=== PATIENT | female | born 1945 | race Caucasian/White ===

== ENCOUNTER 2018-01-05 14:54 | Emergency (ER) | payer MEDICARE, OTHER ==
[2018-01-05 15:08] VITALS: BP 122/71
--- NOTE | 2018-01-05 15:20 | EDM.PDOC ---
ED HPI GENERAL MEDICAL PROBLEM - General Chief Complaint: Upper Extremity Injury/Pain Stated Complaint: LEFT INDEX FINGER INJURY Time Seen by Provider: 01/05/18 15:13 Source of Information: Reports: Patient, Family, RN Notes Reviewed History Limitations: Reports: No Limitations - History of Present Illness INITIAL COMMENTS - FREE TEXT/NARRATIVE: 72-year-old female presents emergency department today following trauma she accidentally caught her left digit #2 in the car door had a small laceration which was bleeding is now controlled she has full range of motion of the digit Left Hand Pain Score (Numeric/FACES): 4 - Related Data Allergies Allergy/AdvReac Type Severity Reaction Status Date / Time codeine Allergy Swelling Verified 12/02/15 06:59 Home Meds: Home Meds Aspirin [Low Dose Aspirin EC] 81 mg PO DAILY 01/06/14 [History] Ca Cmb No.1/Vit D3/B-6/FA/B12 [Vitamin D3 1,000 Unit] 1 tab PO DAILY 01/06/14 [ History] HCTZ/Triamterene [Maxzide 25-37.5 MG] 1 tab PO DAILY 01/06/14 [History] Lutein/Minerals/Vit A,C & E [Ocuvite] 1 tab PO DAILY 01/06/14 [History] Metoprolol Succinate 1 tab PO DAILY 01/06/14 [History] Multivit-Min/FA/Lycopene/Lut [Centrum Silver] 1 tab PO DAILY 01/06/14 [History] Omeprazole [Prilosec] 1 tab PO DAILY 01/06/14 [History] Simvastatin 1 tab PO BEDTIME 01/06/14 [History] buPROPion HCl [Wellbutrin SR] 1 tab PO DAILY 01/06/14 [History] Albuterol [Ventolin HFA] 2 puff IH Q4H PRN 01/10/15 [History] Fluticasone/Salmeterol [Advair 100-50 Diskus] 1 puff IH BID 01/10/15 [History] Allopurinol 300 mg PO DAILY 10/26/15 [History] Gabapentin 300 mg PO TID 10/26/15 [History] Ibuprofen 600 mg PO TID PRN 10/26/15 [History] Psyllium Husk 1 tbs PO DAILY 10/26/15 [History] Past Medical History HEENT History: Reports: Impaired Vision Cardiovascular History: Reports: High Cholesterol, Hypertension Respiratory History: Reports: Asthma Gastrointestinal History: Reports: GERD Musculoskeletal History: Reports: Back Pain, Chronic, Gout, Osteoarthritis Other Musculoskeletal History: seeing ortho next week for a bad knee Psychiatric History: Reports: Addiction, Anxiety, Depression Endocrine/Metabolic History: Reports: Obesity/BMI 30+ Hematologic History: Reports: Anemia Oncologic (Cancer) History: Reports: Basal Cell Carcinoma - Infectious Disease History Infectious Disease History: Reports: Chicken Pox, Measles - Past Surgical History HEENT Surgical History: Reports: LASIK, Oral Surgery, Tonsillectomy Respiratory Surgical History: Reports: None GI Surgical History: Reports: Colonoscopy Female Surgical History: Reports: D&C Endocrine Surgical History: Reports: None Neurological Surgical History: Reports: C-Spine Musculoskeletal Surgical History: Reports: Carpal Tunnel, Other (See Below) Dermatological Surgical History: Reports: None Social & Family History - Tobacco Use Smoking Status *Q: Never Smoker - Caffeine Use Caffeine Use: Reports: Coffee - Recreational Drug Use Recreational Drug Use: No - Living Situation & Occupation Living situation: Reports: Single Occupation: Retired Review of Systems - Review of Systems Review Of Systems: See Below Musculoskeletal: Reports: Joint Swelling (finger) ED EXAM, GENERAL - Physical Exam Exam: See Below Free Text/Narrative:: Examination of left hand I do appreciate some edema around digit #2 at the proximal and middle phalanges she has full range of motion of this digit is swollen so difficult to fully close but I don't appreciate any deviation she has a pedal pulse is +2 Course - Vital Signs Last Recorded V/S: Last Vital Signs Temp 97.8 F 01/05/18 15:04 Pulse 60 01/05/18 15:04 Resp 16 01/05/18 15:04 BP 122/71 01/05/18 15:04 Pulse Ox 95 01/05/18 15:04 - Orders/Labs/Meds Orders: Active Orders 24 hr Category Date Time Status Fingers Second Digit Lt F1 [CR] Stat Exams 01/05/18 15:16 Taken Departure - Departure Time of Disposition: 16:01 Disposition: Home, Self-Care 01 Condition: Good Clinical Impression: Crushing injury of left index finger Qualifiers: Encounter type: initial encounter Qualified Code(s): S67.191A - Crushing injury of left index finger, initial encounter - Discharge Information Referrals: Lon Devlin MD [Primary Care Provider] - Forms: ED Department Discharge Additional Instructions: Use Tylenol or Motrin as needed for pain control, Please followup with your primary care provider in 3-5 days if not better, please call return to the emergency department with worsening of symptoms. - My Orders Last 24 Hours: My Active Orders 01/05/18 15:16 Fingers Second Digit Lt F1 [CR] Stat - Assessment/Plan Last 24 Hours: My Active Orders 01/05/18 15:16 Fingers Second Digit Lt F1 [CR] Stat Plan: Assessment Acuity = acute Site and laterality = crush injury digit #2 left hand Etiology = secondary to car door Manifestations = none Location of injury = Home Lab values = x-ray shows I did review films myself I cannot appreciate any acute process, the official read from radiology is pending Plan Discharge to home Tylenol or Motrin as needed for pain control follow up with primary care 3-5 days if not better This note was dictated using [employer] voice recognition software please call with any questions on syntax or grammar.
--- NOTE | 2018-01-07 08:52 | CR ---
Fingers Second Digit Lt F1 CLINICAL HISTORY: Question injury FINDINGS: There is some soft tissue swelling of the index finger. There is interphalangeal and MCP. J oint space narrowing IMPRESSION: Soft tissue swelling No fracture Mild degenerative changes
== END 2018-01-05 16:17 | disposition home or self-care (01) ==
LOC: JP.ED 14:54
DX: S67.191A Crushing injury of left index finger, initial encounter (principal); I10 Essential (primary) hypertension; E66.9 Obesity, unspecified; W23.0XXA Caught, crushed, jammed, or pinched between moving objects, initial encounter; Z88.5 Allergy status to narcotic agent; Z79.899 Other long term (current) drug therapy; Z79.82 Long term (current) use of aspirin
CPT/HCPCS: 73140-26-F1; 73140-F1; 99284

== ENCOUNTER 2018-11-01 16:25 | Emergency (ER) | payer MEDICARE, OTHER ==
[2018-11-01 16:30] VITALS: BP 163/71; PULSE 66
[2018-11-01] MEDS ORDERED: Lidocaine 1% with EPINEPHrine 1:100,000 50 ML MDV SUBCUT ONE (16:33)
[2018-11-01] MEDS ORDERED: Bacitracin Oint 1 GM U/D Packet TOP ONE (16:33)
--- NOTE | 2018-11-01 16:39 | EDM.PDOC ---
ED HPI GENERAL MEDICAL PROBLEM - General Chief Complaint: Head Injury Stated Complaint: FALL VIA NORTH Time Seen by Provider: 11/01/18 16:26 Source of Information: Reports: Patient, EMS History Limitations: Reports: No Limitations - History of Present Illness INITIAL COMMENTS - FREE TEXT/NARRATIVE: Patient was walking down the road and she tripped over the road bump, falling and hitting her head; she did not lose consciousness; she is on a blood thinner. She has 3 separate laceration on her face. She states she is able to move all extremities. Does have some discomfort to her right wrist but is able to fully move. Onset: Today Location: Reports: Face, Upper Extremity, Right (right wrist) Severity: Moderate Improves with: Reports: None Worsens with: Reports: None - Related Data Allergies Allergy/AdvReac Type Severity Reaction Status Date / Time codeine Allergy Swelling Verified 11/01/18 16:42 Home Meds: Home Meds Aspirin [Low Dose Aspirin EC] 81 mg PO DAILY 01/06/14 [History] Ca Cmb No.1/Vit D3/B-6/FA/B12 [Vitamin D3 1,000 Unit] 1 tab PO DAILY 01/06/14 [ History] HCTZ/Triamterene [Maxzide 25-37.5 MG] 1 tab PO DAILY 01/06/14 [History] Lutein/Minerals/Vit A,C & E [Ocuvite] 1 tab PO DAILY 01/06/14 [History] Metoprolol Succinate 1 tab PO DAILY 01/06/14 [History] Multivit-Min/FA/Lycopene/Lut [Centrum Silver] 1 tab PO DAILY 01/06/14 [History] Omeprazole [Prilosec] 1 tab PO DAILY 01/06/14 [History] Simvastatin 1 tab PO BEDTIME 01/06/14 [History] buPROPion HCl [Wellbutrin SR] 1 tab PO DAILY 01/06/14 [History] Albuterol [Ventolin HFA] 2 puff IH Q4H PRN 01/10/15 [History] Fluticasone/Salmeterol [Advair 100-50 Diskus] 1 puff IH BID 01/10/15 [History] Allopurinol 300 mg PO DAILY 10/26/15 [History] Gabapentin 300 mg PO TID 10/26/15 [History] Ibuprofen 600 mg PO TID PRN 10/26/15 [History] Psyllium Husk 1 tbs PO DAILY 10/26/15 [History] Past Medical History HEENT History: Reports: Impaired Vision Cardiovascular History: Reports: High Cholesterol, Hypertension Respiratory History: Reports: Asthma Gastrointestinal History: Reports: GERD Genitourinary History: Reports: None Musculoskeletal History: Reports: Back Pain, Chronic, Fracture, Gout, Osteoarthritis Other Musculoskeletal History: seeing ortho next week for a bad knee Neurological History: Reports: None Psychiatric History: Reports: Addiction, Anxiety, Depression Endocrine/Metabolic History: Reports: Obesity/BMI 30+ Hematologic History: Reports: Anemia Oncologic (Cancer) History: Reports: Basal Cell Carcinoma Dermatologic History: Reports: None - Infectious Disease History Infectious Disease History: Reports: Chicken Pox, Measles - Past Surgical History HEENT Surgical History: Reports: LASIK, Oral Surgery, Tonsillectomy Respiratory Surgical History: Reports: None GI Surgical History: Reports: Colonoscopy Female Surgical History: Reports: D&C Endocrine Surgical History: Reports: None Neurological Surgical History: Reports: C-Spine Other Musculoskeletal Surgeries/Procedures:: current right wrist and humoral fx Dermatological Surgical History: Reports: None Social & Family History - Caffeine Use Caffeine Use: Reports: Coffee - Living Situation & Occupation Living situation: Reports: Single Occupation: Retired ED ROS GENERAL - Review of Systems Review Of Systems: See Below Constitutional: Reports: No Symptoms HEENT: Reports: No Symptoms Respiratory: Reports: No Symptoms Cardiovascular: Reports: No Symptoms GI/Abdominal: Reports: No Symptoms Musculoskeletal: Reports: Other (right wrist pain) Skin: Reports: Wound (3 seperate lacerations on her face) ED EXAM, GENERAL - Physical Exam Exam: See Below Exam Limited By: No Limitations General Appearance: Alert, WD/WN, No Apparent Distress Eye Exam: Bilateral Eye: EOMI, PERRL Ears: Normal External Exam, Normal Canal, Hearing Grossly Normal Nose: Normal Inspection, Normal Mucosa, No Blood Throat/Mouth: Normal Inspection, Normal Lips, Normal Teeth, Normal Gums Head: Other (laceration to her chin, 0.5 cm, laceration to her right brow.) ED GENERAL MEDICAL PROCEDURES - Laceration/Wound Repair Left Face Lac/wound length in cm: 1 Appearance: Subcutaneous Anesthetic Type: Local Local Anesthesia - Lidocaine (Xylocaine): 1% with EPI Local Anesthetic Volume: 4cc Skin Prep: Chlorhexidine (Hibiciens), Saline, Sterile Drape Exploration/Debridement/Repair: Wound Explored, In a Bloodless Field, Explored to Base, Wound Margins Revised Closed with: Sutures Suture Size: 6-0 # of Sutures: 3 (#1 lac, chin, linear, gaping, bleeding controlled) Suture Type: Silk, Simple Suture Size: 6-0 # of Sutures: 3 (#2 lac, left brow, 1 cm, linear, bleeding controlled) Suture Size: 6-0 # of Sutures: 3 (#3 lac, left forehead, 1 cm, linear, bleeding controlled) Drain Placement: No Sterile Dressing Applied: Provider Tetanus Status Addressed: Yes Complications: No Course - Vital Signs Last Recorded V/S: Last Vital Signs Temp 97.3 F 11/01/18 16:48 Pulse 66 11/01/18 16:48 Resp 16 11/01/18 16:48 BP 163/71 H 11/01/18 16:48 Pulse Ox 93 L 11/01/18 16:48 - Orders/Labs/Meds Meds: Medications Discontinued Medications Generic Name Dose Route Start Last Admin Trade Name Kalani PRN Reason Stop Dose Admin Bacitracin 1 dose 11/01/18 16:33 11/01/18 17:03 Bacitracin Oint 1 Gm TOP 11/01/18 16:34 1 dose ONETIME ONE Administration Lidocaine/Epinephrine 10 ml 11/01/18 16:33 11/01/18 17:02 Xylocaine 1% With Epinephrine 1:100,000 SUBCUT 11/01/18 16:34 10 ml ONETIME ONE Administration - Re-Assessments/Exams Free Text/Narrative Re-Assessment/Exam: 11/01/18 20:22 Reviewed xray and head CT with patient Discussed laceration care; She is up and walking; feels fine; requested discharge home. Departure - Departure Time of Disposition: 19:00 Disposition: Home, Self-Care 01 Condition: Fair Clinical Impression: Laceration of face, CHI (closed head injury), Right wrist sprain - Discharge Information *PRESCRIPTION DRUG MONITORING PROGRAM REVIEWED*: Not Applicable *COPY OF PRESCRIPTION DRUG MONITORING REPORT IN PATIENT MONIKA: Not Applicable Instructions: Concussion, Adult, Sutured Wound Care, [id number] Referrals: PCP,None [Primary Care Provider] - Forms: ED Department Discharge Additional Instructions: Keep suture site clean and dry for 24 hours Have sutures removed in 7 days Watch for infection. If your symptoms worsen, return to ER Call for questions. Recommend follow up with your primary doctor next week. - Problem List & Annotations (1) CHI (closed head injury) SNOMED Code(s): 135242206426 Code(s): S09.90XA - UNSPECIFIED INJURY OF HEAD, INITIAL ENCOUNTER Status: Acute Priority: Medium Qualifiers: Encounter type: initial encounter Qualified Code(s): S09.90XA - Unspecified injury of head, initial encounter (2) Laceration of face SNOMED Code(s): 783537118 Code(s): S01.81XA - LACERATION W/O FOREIGN BODY OF OTH PART OF HEAD, INIT ENCNTR Status: Acute Priority: Medium Qualifiers: Encounter type: initial encounter Qualified Code(s): S01.81XA - Laceration without foreign body of other part of head, initial encounter (3) Right wrist sprain SNOMED Code(s): 25552038 Code(s): S63.501A - UNSPECIFIED SPRAIN OF RIGHT WRIST, INITIAL ENCOUNTER Status: Acute Priority: Low Qualifiers: Encounter type: initial encounter Qualified Code(s): S63.501A - Unspecified sprain of right wrist, initial encounter - Problem List Review Problem List Initiated/Reviewed/Updated: Yes
--- NOTE | 2018-11-01 18:09 | CRLCR ---
INDICATION: Pain after fall COMPARISON: None available. TECHNIQUE: AP, lateral, and oblique views of the right wrist are obtained for a total of three views. FINDINGS: There is a transverse fracture of the distal waist of the scaphoid, with irregular sclerosis of the fracture line, consistent with an old scaphoid fracture. There is approximately 3 millimeters of ulnar displacement of the distal fracture fragment. There is also mildly increased density throughout the proximal pole of the scaphoid consistent with avascular necrosis. There is mild widening of the scapholunate articulation suggesting ligamentous disruption or laxity. The bones of the carpus are otherwise in anatomic alignment. There are changes of ORIF of a distal radial fracture with an anterior metallic plate with multiple anchoring screws. There is no deformity from the fracture in the hardware shows no sign of fracture or loosening. There is moderate primary osteoarthritis of the 1st CMC joint and mild primary osteoarthritis of the triscaphe region at the base of the thumb. The soft tissues are normal in appearance with no sign of foreign body. IMPRESSION: No sign of acute osseous injury to the wrist. 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 Satisfactory appearance status post ORIF of a distal radial fracture. 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 Dictated by Reuben Carroll MD @ Nov 01 2018 6:04PM Signed by Dr. Reuben Carroll @ Nov 01 2018 6:08PM
--- NOTE | 2018-11-01 18:38 | CRLCT ---
INDICATION: Pain after fall. Patient on blood thinners. TECHNIQUE: CT Head without contrast. COMPARISON: 01 October 2015. . FINDINGS: CSF spaces: Within normal limits for age. Brain parenchyma: The mendoza-white differentiation is normal. No sign of mass, hemorrhage, or midline shift. Skull base and calvarium: The visualized paranasal sinuses and mastoid air cells are clear. The visualized orbits are grossly unremarkable. No skull fractures. . IMPRESSION: Unremarkable noncontrast head CT. Please note that all CT scans at this facility use dose modulation, iterative reconstruction, and/or weight-based dosing when appropriate to reduce radiation dose to as low as reasonably achievable. Dictated by Lai Mcneal MD @ Nov 01 2018 6:35PM Signed by Dr. Lai Mcneal @ Nov 01 2018 6:36PM
== END 2018-11-01 18:52 | disposition home or self-care (01) ==
LOC: JP.ED 16:25
DX: S01.81XA Laceration without foreign body of other part of head, initial encounter (principal); S09.90XA Unspecified injury of head, initial encounter; S63.501A Unspecified sprain of right wrist, initial encounter; E78.00 Pure hypercholesterolemia, unspecified; I10 Essential (primary) hypertension; J45.909 Unspecified asthma, uncomplicated; K21.9 Gastro-esophageal reflux disease without esophagitis; F41.9 Anxiety disorder, unspecified; F32.9 Major depressive disorder, single episode, unspecified; E66.9 Obesity, unspecified; Z68.31 Body mass index [BMI] 31.0-31.9, adult; Z88.5 Allergy status to narcotic agent; Z79.82 Long term (current) use of aspirin; Z79.899 Other long term (current) drug therapy; W18.39XA Other fall on same level, initial encounter
CPT/HCPCS: 12011; 12013; 70450; 73100-RT; 99283; 99284-25

== ENCOUNTER 2019-07-29 22:50 | Emergency (ER) | payer MEDICARE, OTHER ==
[2019-07-29 23:19] VITALS: BP 143/64; PULSE 57
[2019-07-29] MEDS ORDERED: Bacitracin Oint 1 GM U/D Packet TOP ONE (23:23)
--- NOTE | 2019-07-29 23:29 | EDM.PDOC ---
ED HPI GENERAL MEDICAL PROBLEM - General Chief Complaint: Laceration Stated Complaint: LACERATIONS TO FOREHEAD Time Seen by Provider: 07/29/19 23:10 Source of Information: Reports: Patient History Limitations: Reports: No Limitations - History of Present Illness INITIAL COMMENTS - FREE TEXT/NARRATIVE: 74-year-old female stumbled in her home and striking her forehead on a stove. She has 3 separate forehead lacerations, no other injury. Onset: Sudden Duration: Hour(s): (Within the last hour) Location: Reports: Head Associated Symptoms: Reports: Headaches. Denies: Syncope Forehead Pain Score (Numeric/FACES): 4 - Related Data Allergies Allergy/AdvReac Type Severity Reaction Status Date / Time codeine Allergy Swelling Verified 11/01/18 16:42 morphine Allergy Swelling Verified 07/29/19 23:07 Home Meds: Home Meds HCTZ/Triamterene [Maxzide 25-37.5 MG] 1 tab PO DAILY 01/06/14 [History] Metoprolol Succinate 1 tab PO DAILY 01/06/14 [History] Multivit-Min/FA/Lycopene/Lut [Centrum Silver] 1 tab PO DAILY 01/06/14 [History] Omeprazole [Prilosec] 1 tab PO DAILY 01/06/14 [History] Simvastatin 1 tab PO BEDTIME 01/06/14 [History] Albuterol [Ventolin HFA] 2 puff IH Q4H PRN 01/10/15 [History] Ibuprofen 600 mg PO TID PRN 10/26/15 [History] Psyllium Husk 1 tbs PO DAILY 10/26/15 [History] allopurinoL [Allopurinol] 300 mg PO DAILY 10/26/15 [History] Escitalopram [Lexapro] 20 mg PO DAILY 07/29/19 [History] Gabapentin [Neurontin] 100 mg PO DAILY PRN 07/29/19 [History] buPROPion HCL [Bupropion Xl] 300 mg PO DAILY 07/29/19 [History] busPIRone [Buspar] 15 mg PO TID 07/29/19 [History] Past Medical History HEENT History: Reports: Impaired Vision Cardiovascular History: Reports: High Cholesterol, Hypertension Respiratory History: Reports: Asthma Gastrointestinal History: Reports: GERD Genitourinary History: Reports: None Musculoskeletal History: Reports: Back Pain, Chronic, Fracture, Gout, Osteoarthritis Other Musculoskeletal History: seeing ortho next week for a bad knee Neurological History: Reports: None Psychiatric History: Reports: Addiction, Anxiety, Depression Endocrine/Metabolic History: Reports: Obesity/BMI 30+ Hematologic History: Reports: Anemia Oncologic (Cancer) History: Reports: Basal Cell Carcinoma Dermatologic History: Reports: None - Infectious Disease History Infectious Disease History: Reports: Chicken Pox, Measles - Past Surgical History HEENT Surgical History: Reports: LASIK, Oral Surgery, Tonsillectomy Respiratory Surgical History: Reports: None GI Surgical History: Reports: Colonoscopy Female Surgical History: Reports: D&C Endocrine Surgical History: Reports: None Neurological Surgical History: Reports: C-Spine Other Musculoskeletal Surgeries/Procedures:: current right wrist and humoral fx Dermatological Surgical History: Reports: None Social & Family History - Tobacco Use Smoking Status *Q: Never Smoker - Caffeine Use Caffeine Use: Reports: Coffee - Alcohol Use Days Per Week of Alcohol Use: 7 Number of Drinks Per Day: 2 Total Drinks Per Week: 14 - Recreational Drug Use Recreational Drug Use: No - Living Situation & Occupation Living situation: Reports: Single Occupation: Retired ED ROS GENERAL - Review of Systems Review Of Systems: See Below Constitutional: Denies: Fever, Chills HEENT: Denies: Vision Change Respiratory: Denies: Shortness of Breath GI/Abdominal: Denies: Abdominal Pain, Nausea, Vomiting Skin: Reports: Other (3 separate lacerations across the upper forehead) Neurological: Reports: Headache Psychiatric: Reports: No Symptoms ED EXAM, SKIN/RASH Exam: See Below Exam Limited By: No Limitations General Appearance: Alert, No Apparent Distress Eye Exam: Bilateral Eye: EOMI Head: Other (Patient has 3 separate diagonal lacerations across the upper forehead. 2 or 3 cm long, the third is 2.5 cm long. All 3 are through into the subcutaneous tissue will need suturing. There is no crepitus or step-off felt on the frontal skull but she is very tender to palpation) Respiratory/Chest: No Respiratory Distress Neurological: Alert, Oriented, No Motor/Sensory Deficits Course - Vital Signs Last Recorded V/S: Last Vital Signs Temp 97.0 F 07/29/19 23:18 Pulse 57 L 07/29/19 23:18 Resp 18 07/29/19 23:18 BP 143/64 H 07/29/19 23:18 Pulse Ox 96 07/29/19 23:18 - Orders/Labs/Meds Meds: Medications Discontinued Medications Generic Name Dose Route Start Last Admin Trade Name Kalani PRN Reason Stop Dose Admin Bacitracin 1 dose 07/29/19 23:23 07/29/19 23:32 Bacitracin Oint 1 Gm TOP 07/29/19 23:24 1 dose ONETIME ONE Administration Lidocaine HCl 5 ml 07/29/19 23:23 07/29/19 23:32 Xylocaine-Mpf 1% INJECT 07/29/19 23:24 5 ml ONETIME ONE Administration - Re-Assessments/Exams Free Text/Narrative Re-Assessment/Exam: 07/29/19 23:59 The lacerations were anesthetized with 1% lidocaine, cleansed thoroughly with normal saline and then closed with 5-0 Ethilon sutures, 15 sutures total. Topical bacitracin and a pressure dressing was applied after a CT without contrast of the head was obtained. 07/30/19 00:[address] was negative, last tetanus was in 2013 so it is not needed. Patient will return next Sunday or Sunday for suture removal, keep wounds covered and clean while healing. She can recheck sooner if concerns of infection or not healing satisfactorily. 07/30/19 00:42 Impression: 1. No intracranial hemorrhage or calvarial fracture. 2. Frontal scalp laceration and small hematoma. Departure - Departure Time of Disposition: 00:46 Disposition: Home, Self-Care 01 Clinical Impression: Forehead laceration Qualifiers: Encounter type: initial encounter Qualified Code(s): S01.81XA - Laceration without foreign body of other part of head, initial encounter - Discharge Information Instructions: Sutured Wound Care, [id number] Referrals: Lon Devlin MD [Primary Care Provider] - Forms: ED Department Discharge Care Plan Goals: Keep wounds clean while healing, and return for suture removal next Sunday or Sunday, in 6 to 7 days. Gentle pressure over the area for the first day or 2 will help with swelling and bruising. Return anytime if concerns such as not healing satisfactorily or possible infection. Sepsis Event Note - Evaluation Sepsis Screening Result: No Definite Risk - Focused Exam Vital Signs: Vital Signs Temp Pulse Resp BP Pulse Ox 07/29/19 23:18 97.0 F 57 L 18 143/64 H 96 07/29/19 23:16 97.0 F 57 L 18 143/64 H 96 Date Exam was Performed: 07/30/19 Time Exam was Performed: 01:49
--- NOTE | 2019-07-30 00:38 | CRLCT ---
Indication: Fall Technique: Nonenhanced axial CT imaging through the head. Comparison: CT head without contrast 04/30/2019 Findings: There is no intracranial hemorrhage, edema, or mass effect. There is normal attenuation of the brain parenchyma. The ventricles are normal in size. The basal cisterns are patent. The calvarium is intact. The visualized paranasal sinuses and mastoid air cells are aerated. There is a frontal scalp laceration with a small underlying hematoma. Impression: 1. No intracranial hemorrhage or calvarial fracture. 2. Frontal scalp laceration and small hematoma. Please note that all CT scans at this facility use dose modulation, iterative reconstruction, and/or weight-based dosing when appropriate to reduce radiation dose to as low as reasonably achievable. Dictated by Marce Blandon MD @ Jul 30 2019 12:29AM Signed by Dr. Marce Blandon @ Jul 30 2019 12:36AM
== END 2019-07-30 00:47 | disposition home or self-care (01) ==
LOC: JP.ED 22:50
DX: S01.81XA Laceration without foreign body of other part of head, initial encounter (principal); E78.00 Pure hypercholesterolemia, unspecified; I10 Essential (primary) hypertension; J45.909 Unspecified asthma, uncomplicated; K21.9 Gastro-esophageal reflux disease without esophagitis; F41.9 Anxiety disorder, unspecified; F32.9 Major depressive disorder, single episode, unspecified; E66.9 Obesity, unspecified; Z68.30 Body mass index [BMI] 30.0-30.9, adult; Z79.899 Other long term (current) drug therapy; Z88.5 Allergy status to narcotic agent; W01.198A Fall on same level from slipping, tripping and stumbling with subsequent striking against other object, initial encounter; Y92.009 Unspecified place in unspecified non-institutional (private) residence as the place of occurrence of the external cause
CPT/HCPCS: 12013; 70450; 99283; J2001

== ENCOUNTER 2019-12-09 07:08 | Day surgery (SDC) | payer MEDICARE, OTHER ==
[2019-12-09] MEDS ORDERED: Propofol 200 MG/20 ML SDV ONE ×2 (07:30→09:45)
[2019-12-09] MEDS ORDERED: fentaNYL 100 MCG/2 ML SDV ONE (07:30)
[2019-12-09] MEDS ORDERED: Midazolam 1 MG/ML 2 ML SDV ONE (07:30)
[2019-12-09] MEDS ORDERED: Dextrose 5%-Lactated Ringers 1,000 ML IV SCH (07:45)
[2019-12-09 11:00] VITALS: BP 127/90; PULSE 55
--- NOTE | 2019-12-23 13:21 | OR ---
DATE OF PROCEDURE: 12/09/2019 SURGEON: Michael Arana MD PREOPERATIVE DIAGNOSIS: Anemia. POSTOPERATIVE DIAGNOSIS: 1. History of anemia with upper gastrointestinal endoscopy showing: a. Large hiatal hernia with diffuse upward extension of the columnar mucosa with mucosal inflammation. b. Very mild patchy antral gastritis. 2. Colonoscopy showing limited left colonic diverticulosis. 3. No evident bleeding source identified on either of the upper and lower gastrointestinal endoscopy. OPERATIVE PROCEDURES: 1. Esophagogastroduodenoscopy with: a. Biopsy of esophagogastric junction with histologic evaluation. b. Biopsies of antrum for CLOtest. 2. Flexible colonoscopy. ANESTHESIA: IV sedation. INDICATION FOR PROCEDURE: This is a 74-year-old presenting with some anemia. The patient is to undergo upper and lower GI endoscopy for attempting to identify any GI bleeding sources. Potential risks of the procedure including bleeding and perforation were discussed, and the patient wishes to proceed. DETAILS OF PROCEDURE: The patient was taken to the operating room and placed in a left lateral decubitus position. IV sedation was administered after which the upper GI endoscope was passed orally through the length of the esophagus into the stomach with retroflexion view of the fundus, and thereafter, through the pyloric channel into the junction of the 3rd and 4th portions of the duodenum. Findings included normal hypopharynx, larynx, upper esophageal sphincter, and esophageal body. Within the EG junction, there was a quite large hiatal hernia measuring around 5 to 6 cm. There was, above this, a diffuse upward extension above the upper gastric folds of the columnar mucosa just ranging up to around 2 cm above the upper gastric folds. This was associated with A moderate amount of inflammation, but without any ulcerations or obvious bleeding sites. Within the stomach, there was some very mild patchy antral gastritis. Otherwise, the remainder of the gastric and duodenal exams were unremarkable. At this point, biopsies were taken from the antrum and sent for CLOtest for H pylori. Multiple biopsies were then obtained from the areas of the upward extension of the columnar mucosa of the area of the EG junction. No bleeding from the biopsy sites was seen, and the procedure was then concluded. Attention was then taken to the colonoscopy. The initial digital rectal exam was performed and was unremarkable. The colonoscope was then passed into the rectum with retroflexion revealing uncomplicated hemorrhoidal columns. Scope was then eventually passed to the level of the cecum. The prep was fairly good with only a small amount of liquid stool being present. To that level, the patient had some uncomplicated-appearing scattered left diverticula. Otherwise, no areas of colitis. No polyps or other signs of neoplasia. The scope was then withdrawn and the procedure concluded. At this point, there appears to be no obvious bleeding source from either of the upper or lower endoscopic examinations. The patient is presently on omeprazole 20 mg a day, and this is just controlling symptoms reasonably that it could be maintained. If the biopsies show Wong esophagus, surveillance endoscopic followup regimen. Michael Arana MD /[id number]
== END 2019-12-09 11:05 | disposition home or self-care (01) ==
LOC: JP.SDS 07:08
PROVIDERS: ATTEND Surgery
DX: K57.30 Diverticulosis of large intestine without perforation or abscess without bleeding (principal); K64.9 Unspecified hemorrhoids; K29.50 Unspecified chronic gastritis without bleeding; K44.9 Diaphragmatic hernia without obstruction or gangrene; D64.9 Anemia, unspecified; I10 Essential (primary) hypertension; K21.0 Gastro-esophageal reflux disease with esophagitis; F41.9 Anxiety disorder, unspecified; F32.9 Major depressive disorder, single episode, unspecified
CPT/HCPCS: 43239; 45378; 87081; 88305; J2250; J2704; J3010; J7121

== ENCOUNTER 2019-12-28 16:45 | Emergency (ER) | payer MEDICARE, OTHER ==
[2019-12-28 17:14] VITALS: BP 175/55; PULSE 75
[2019-12-28] MEDS ORDERED: Lidocaine 1% with EPINEPHrine 1:100,000 50 ML MDV INFILT ONE (17:14)
[2019-12-28] MEDS ORDERED: Bacitracin Oint 1 GM U/D Packet TOP ONE (17:25)
--- NOTE | 2019-12-28 17:46 | EDM.PDOC ---
ED HPI GENERAL MEDICAL PROBLEM - General Chief Complaint: Laceration Time Seen by Provider: 12/28/19 17:20 Source of Information: Reports: Patient History Limitations: Reports: No Limitations - History of Present Illness INITIAL COMMENTS - FREE TEXT/NARRATIVE: 74-year-old female stumbled and bumped her right lateral eyebrow on the concrete sustaining a laceration. She also broke her glasses. No other injury other than some mild contusions of her knees. No loss of consciousness, dizziness, nausea or vomiting or visual complaints. Onset: Sudden Duration: Hour(s): (Within the last hour) Location: Reports: Face (Laceration across the very lateral right eyebrow) Associated Symptoms: Reports: No Other Symptoms Right Forehead Pain Score (Numeric/FACES): 3 - Related Data Allergies Allergy/AdvReac Type Severity Reaction Status Date / Time codeine Allergy Swelling Verified 12/28/19 17:07 morphine Allergy Swelling Verified 12/28/19 17:07 Home Meds: Home Meds HCTZ/Triamterene [Maxzide 25-37.5 MG] 1 tab PO DAILY 01/06/14 [History] Metoprolol Succinate 25 mg PO DAILY 01/06/14 [History] Multivit-Min/FA/Lycopene/Lut [Centrum Silver] 1 tab PO DAILY 01/06/14 [History] Omeprazole [Prilosec] 20 mg PO DAILY 01/06/14 [History] Simvastatin 40 tab PO BEDTIME 01/06/14 [History] Albuterol [Ventolin HFA] 2 puff IH Q4H PRN 01/10/15 [History] Ibuprofen 600 mg PO TID PRN 10/26/15 [History] Psyllium Husk 1 tbs PO DAILY 10/26/15 [History] allopurinoL [Allopurinol] 300 mg PO DAILY 10/26/15 [History] Escitalopram [Lexapro] 20 mg PO DAILY 07/29/19 [History] Gabapentin [Neurontin] 100 mg PO BID 07/29/19 [History] buPROPion HCL [Bupropion Xl] 300 mg PO DAILY 07/29/19 [History] busPIRone [Buspar] 15 mg PO BID 07/29/19 [History] Ascorbic Acid [Vitamin C] 500 mg PO DAILY 12/05/19 [History] Calcium Carbonate/Vitamin D3 [Calcium Carbonate/Vitamin D 600 MG-200 Unit] 1 tab PO BID 12/05/19 [History] Cholecalciferol (Vitamin D3) [Vitamin D] 1 tab PO DAILY 12/05/19 [History] Cyanocobalamin (Vitamin B-12) [Vitamin B-12] 500 mcg PO DAILY 12/05/19 [History] [place]-3/DHA/Epa/Fish Oil [[place] 3 500 Softgel] 500 mg PO DAILY 12/05/19 [History] Tretinoin/Emollient Base [Tretinoin 0.05% Emollient Crm] 1 applic TOP BEDTIME PRN 12/05/19 [History] Past Medical History HEENT History: Reports: Cataract, Impaired Vision Cardiovascular History: Reports: High Cholesterol, Hypertension Respiratory History: Reports: Asthma, Bronchitis, Recurrent Gastrointestinal History: Reports: GERD Genitourinary History: Reports: None CHILD WELFARE MANAGER History: Reports: None Musculoskeletal History: Reports: Back Pain, Chronic, Fracture, Gout, O steoarthritis Other Musculoskeletal History: seeing ortho next week for a bad knee Neurological History: Reports: None Other Neuro History: multiple falls Psychiatric History: Reports: Addiction, Anxiety, Depression Endocrine/Metabolic History: Reports: None Hematologic History: Reports: Anemia Immunologic History: Reports: None Oncologic (Cancer) History: Reports: Basal Cell Carcinoma Dermatologic History: Reports: None - Infectious Disease History Infectious Disease History: Reports: Chicken Pox, Measles, Mumps - Past Surgical History HEENT Surgical History: Reports: LASIK, Oral Surgery, Tonsillectomy Cardiovascular Surgical History: Reports: None Respiratory Surgical History: Reports: None GI Surgical History: Reports: Colonoscopy, EGD Female Surgical History: Reports: D&C Endocrine Surgical History: Reports: None Neurological Surgical History: Reports: C-Spine Other Musculoskeletal Surgeries/Procedures:: right wrist and humoral fx Oncologic Surgical History: Reports: None Dermatological Surgical History: Reports: None Social & Family History - Family History Family Medical History: Noncontributory - Tobacco Use Smoking Status *Q: Never Smoker Second Hand Smoke Exposure: No - Caffeine Use Caffeine Use: Reports: Coffee, Soda - Alcohol Use Days Per Week of Alcohol Use: 7 Number of Drinks Per Day: 4 Total Drinks Per Week: 28 - Recreational Drug Use Recreational Drug Use: No - Living Situation & Occupation Living situation: Reports: Single Occupation: Retired ED ROS GENERAL - Review of Systems Review Of Systems: See Below Constitutional: Denies: Fever, Chills Respiratory: Denies: Shortness of Breath Cardiovascular: Denies: Chest Pain GI/Abdominal: Denies: Nausea, Vomiting Neurological: Denies: Dizziness, Headache ED EXAM, SKIN/RASH Exam: See Below Exam Limited By: No Limitations General Appearance: Alert, No Apparent Distress Eye Exam: Bilateral Eye: EOMI, PERRL, Other (No pain with movement of the eyes) Head: Other (Patient is a 3 cm longitudinal laceration extending down the lateral right forehead through the lateral eyebrow. No underlying bony tenderness or crepitus.) Neck: Supple, Non-Tender Respiratory/Chest: No Respiratory Distress Course - Vital Signs Last Recorded V/S: Last Vital Signs Temp 97.6 F 12/28/19 17:13 Pulse 75 12/28/19 17:13 Resp 16 12/28/19 17:13 BP 175/55 H 12/28/19 17:13 Pulse Ox 95 12/28/19 17:13 - Orders/Labs/Meds Meds: Medications Discontinued Medications Generic Name Dose Route Start Last Admin Trade Name Kalani PRN Reason Stop Dose Admin Bacitracin 1 dose 12/28/19 17:25 12/28/19 17:52 Bacitracin Oint 1 Gm TOP 12/28/19 17:26 1 dose ONETIME ONE Administration Lidocaine/Epinephrine 30 ml 12/28/19 17:14 12/28/19 17:52 Xylocaine 1% With Epinephrine 1:100,000 INFILT 12/28/19 17:15 30 ml ONETIME ONE Administration - Re-Assessments/Exams Free Text/Narrative Re-Assessment/Exam: 12/28/19 17:45 The area was infiltrated with 1% lidocaine with epinephrine, cleansed thoroughly with saline and four 5-0 Ethilon sutures were used to close the wound. Topical bacitracin and dressing was applied. 12/28/19 17:50 Patient will keep the wound covered and clean while healing and the sutures can be removed in 7 days Departure - Departure Time of Disposition: 18:01 Disposition: Home, Self-Care 01 Clinical Impression: Laceration of right eyebrow Qualifiers: Encounter type: initial encounter Qualified Code(s): S01.111A - Laceration without foreign body of right eyelid and periocular area, initial encounter - Discharge Information Instructions: Laceration Care, Adult Referrals: Lon Devlin MD [Primary Care Provider] - Forms: ED Department Discharge Care Plan Goals: Keep wound covered and clean while healing. Return in 7 days, next Sunday to have stitches removed. Recheck sooner if concerns of infection or not healing satisfactorily.
== END 2019-12-28 18:01 | disposition home or self-care (01) ==
LOC: JP.ED 16:45
DX: S01.111A Laceration without foreign body of right eyelid and periocular area, initial encounter (principal); S80.02XA Contusion of left knee, initial encounter; S80.01XA Contusion of right knee, initial encounter; I10 Essential (primary) hypertension; K21.9 Gastro-esophageal reflux disease without esophagitis; J45.909 Unspecified asthma, uncomplicated; M10.9 Gout, unspecified; F41.9 Anxiety disorder, unspecified; F32.9 Major depressive disorder, single episode, unspecified; Z88.5 Allergy status to narcotic agent; Z79.899 Other long term (current) drug therapy; W18.40XA Slipping, tripping and stumbling without falling, unspecified, initial encounter
CPT/HCPCS: 12013; 99282-25; 99283

== ENCOUNTER 2020-01-04 08:49 | Emergency (ER) | payer MEDICARE, OTHER ==
[2020-01-04 08:59] VITALS: BP 175/55; PULSE 77
== END 2020-01-04 09:07 | disposition home or self-care (01) ==
LOC: JP.ED 08:49
DX: S01.112D Laceration without foreign body of left eyelid and periocular area, subsequent encounter (principal)
CPT/HCPCS: 99281

== ENCOUNTER 2021-03-03 07:28 | Day surgery (SDC) | payer MEDICARE ==
[2021-03-03 08:00] VITALS: PULSE 61
[2021-03-03] MEDS: Sodium Chloride 0.9% 10 ML Syringe FLUSH PRN (08:06)
[2021-03-03 08:59] VITALS: BP 174/83
--- NOTE | 2021-03-03 09:14 | OR ---
DATE OF PROCEDURE: 03/03/2021 SURGEON: Nalini Hogan MD POSTOPERATIVE CARE: Postoperative care will be provided mainly at the [address] [place] [address] [facility] in conjunction with [facility]. PREOPERATIVE DIAGNOSIS: Cataract, right eye. POSTOPERATIVE DIAGNOSIS: Cataract, right eye. PROCEDURE: Phacoemulsification with intraocular lens placement, right eye. ANESTHESIA: Topical and intracameral. ESTIMATED BLOOD LOSS: Minimal. COMPLICATIONS: None. PATHOLOGY SPECIMENS: None. SURGICAL FINDINGS: None. INDICATION FOR PROCEDURE: The patient is a 76-year-old female with history of a visually significant cataract in the right eye, which interfered with activities of daily living. This consisted of a nuclear sclerosis cataract. Following careful discussion of the risks, benefits and alternatives to cataract extraction with intraocular lens placement including blindness and , the patient elected to proceed, and informed, written consent was obtained prior to the procedure. DESCRIPTION OF THE PROCEDURE: The patient was previously identified, and a lewis placed above the right eye. All sources, including the patient, indicated that the right eye was the correct eye. The patient was subsequently taken to the operating room where standard monitors were applied. The patient was then prepped and draped in the usual sterile fashion for ophthalmic surgery. Attention was first directed at the 12 o'clock position where a paracentesis port was fashioned. Shugar solution followed by Viscoat was instilled into the eye. Attention was then directed to the 8:30 position where a triplanar incision was made in a near-clear manner using a keratome. A continuous capsulorrhexis was then made using a combination of the cystotome and Utrata forceps. Hydrodissection was achieved using a balanced salt solution, and the lens rotated nicely. Phacoemulsification was then done using a modified [id number] technique without complication. Phaco time was 7.49 CDE. The remaining cortex was removed using the irrigation/aspiration handpiece. Provisc was then instilled into the eye. A Technis lens, model DIB00, at 24.0 diopters was then placed in the capsular bag using an [place] injector. The remaining viscoelastic was removed using the irrigation/aspiration forceps. All wounds were then checked and found to be watertight. The lid speculum and drapes were removed. Maxitrol ointment was placed in the patient's right eye, and the eye was shielded. The patient tolerated the procedure well. The patient was instructed to follow up tomorrow. All needle and sponge counts were correct at the end of the procedure. There were no surgical findings. Nalini Hogan MD /[id number]
== END 2021-03-03 09:19 | disposition home or self-care (01) ==
LOC: JP.SDS 07:28
PROVIDERS: ATTEND Ophthalmology
DX: H25.11 Age-related nuclear cataract, right eye (principal); Z88.5 Allergy status to narcotic agent
CPT/HCPCS: V2632

== ENCOUNTER 2021-03-17 07:49 | Day surgery (SDC) | payer MEDICARE ==
[2021-03-17] MEDS ORDERED: Sodium Chloride 0.9% 10 ML Syringe FLUSH ONE (08:30)
--- NOTE | 2021-03-17 09:42 | OR ---
DATE OF PROCEDURE: 03/17/2021 SURGEON: aNlini Hogan MD POSTOPERATIVE CARE: Postoperative care will be provided mainly at the [address] [place] [address] [facility] in conjunction with [facility]. PREOPERATIVE DIAGNOSIS: Cataract, left eye. POSTOPERATIVE DIAGNOSIS: Cataract, left eye. PROCEDURE: Phacoemulsification with intraocular lens placement, left eye. ANESTHESIA: Topical and intracameral. ESTIMATED BLOOD LOSS: Minimal. COMPLICATIONS: None. PATHOLOGY SPECIMENS: None. SURGICAL FINDINGS: None. INDICATION FOR PROCEDURE: The patient is a 76-year-old female with history of a visually significant cataract in the left eye, which interfered with activities of daily living. This consisted of a nuclear sclerosis cataract. Following careful discussion of the risks, benefits and alternatives to cataract extraction with intraocular lens placement including blindness and , the patient elected to proceed, and informed, written consent was obtained prior to the procedure. DESCRIPTION OF THE PROCEDURE: The patient was previously identified, and a lewis placed above the left eye. All sources, including the patient, indicated that the left eye was the correct eye. The patient was subsequently taken to the operating room where standard monitors were applied. The patient was then prepped and draped in the usual sterile fashion for ophthalmic surgery. Attention was first directed at the 12 o'clock position where a paracentesis port was fashioned. Shugar solution followed by Viscoat was instilled into the eye. Attention was then directed to the 8:30 position where a triplanar incision was made in a near-clear manner using a keratome. A continuous capsulorrhexis was then made using a combination of the cystotome and Utrata forceps. Hydrodissection was achieved using a balanced salt solution, and the lens rotated nicely. Phacoemulsification was then done using a modified [id number] technique without complication. Phaco time was 9.63 CDE. The remaining cortex was removed using the irrigation/aspiration handpiece. Provisc was then instilled into the eye. A Technis lens, model DIB00, at 23.5 diopters was then placed in the capsular bag using an [place] injector. The remaining viscoelastic was removed using the irrigation/aspiration forceps. All wounds were then checked and found to be watertight. The lid speculum and drapes were removed. Maxitrol ointment was placed in the patient's left eye, and the eye was shielded. The patient tolerated the procedure well. The patient was instructed to follow up tomorrow. All needle and sponge counts were correct at the end of the procedure. There were surgical findings. Nalini Hogan MD /[id number]
[2021-03-17 09:55] VITALS: BP 169/97; PULSE 65
== END 2021-03-17 09:50 | disposition home or self-care (01) ==
LOC: JP.SDS 07:49
PROVIDERS: ATTEND Ophthalmology
DX: H25.12 Age-related nuclear cataract, left eye (principal); I10 Essential (primary) hypertension; E78.5 Hyperlipidemia, unspecified; F41.9 Anxiety disorder, unspecified; Z88.5 Allergy status to narcotic agent
CPT/HCPCS: V2632

== ENCOUNTER 2022-03-17 14:19 | Emergency (ER) | payer MEDICARE ==
[2022-03-17 14:31] VITALS: BP 173/62; PULSE 57
== END 2022-03-17 16:32 | disposition home or self-care (01) ==
LOC: JP.ED 14:19
DX: S00.03XA Contusion of scalp, initial encounter (principal); E78.00 Pure hypercholesterolemia, unspecified; I10 Essential (primary) hypertension; K21.9 Gastro-esophageal reflux disease without esophagitis; M10.9 Gout, unspecified; Z88.5 Allergy status to narcotic agent; Z79.899 Other long term (current) drug therapy; W00.0XXA Fall on same level due to ice and snow, initial encounter
CPT/HCPCS: 70450; 99283

== ENCOUNTER 2022-09-14 10:02 | Day surgery (SDC) | payer MEDICARE ==
[~2022-09-14 10:02] MED LIST: Bupivacaine 0.5% 50 ML MDV ONE; Lidocaine 1% with EPINEPHrine 1:100,000 50 ML MDV ONE; Meropenem 500 MG SDV ONE; Propofol 200 MG/20 ML SDV ONE; fentaNYL 100 MCG/2 ML SDV ONE
[2022-09-14] MEDS ORDERED: Dextrose 5%-Lactated Ringers 1,000 ML IV SCH (11:00)
[2022-09-14] MEDS ORDERED: ceFAZolin 2 GM in Premix Bag 1 BAG IV ONE (11:30)
[2022-09-14] MEDS ORDERED: Propofol 200 MG/20 ML SDV ONE (12:22)
[2022-09-14] MEDS ORDERED: Linezolid 600 MG/300 ML Premix Bag IRR ONE (12:35)
[2022-09-14] MEDS ORDERED: Bacitracin Oint 1 GM U/D Packet ONE (12:44)
[2022-09-14] MEDS ORDERED: Acetaminophen 325 MG Tab PO PRN (13:27)
[2022-09-14 13:54] VITALS: BP 137/58; PULSE 74
== END 2022-09-14 14:17 | disposition home or self-care (01) ==
LOC: JP.SDS 10:02
PROVIDERS: ATTEND Surgery
DX: S80.12XA Contusion of left lower leg, initial encounter (principal); I10 Essential (primary) hypertension; E78.5 Hyperlipidemia, unspecified; M10.9 Gout, unspecified; F41.9 Anxiety disorder, unspecified; Z88.5 Allergy status to narcotic agent
CPT/HCPCS: 27603; 29580; 37618; 87070; 87075; 87205; A9270; J0690; J2020; J2185; J2704; J3010; J3490; J7121

== ENCOUNTER 2023-02-24 18:45 | Inpatient (IN) | payer MEDICARE ==
[2023-02-24] MEDS ORDERED: Ondansetron 4 MG Tab.DIS PO ONE (19:56)
[2023-02-24 20:57] LABS: BASOPHILS ABSOLUTE AUTO 0.04 K/uL (0.00-0.10); BASOPHILS PERCENT AUTO 0.6 % (0.1-1.3); HEMATOCRIT 34.7 % (34.3-46.0); HEMOGLOBIN 11.9 g/dL (11.2-15.5); IMMATURE GRAN ABSOLUTE AUTO 0.03 K/uL (0.00-0.23); IMMATURE GRAN PERCENT AUTO 0.4 % (0.0-0.7); LYMPHOCYTES ABSOLUTE AUTO 0.46 K/uL (0.8-3.3); LYMPHOCYTES PERCENT AUTO 6.5 % (11.4-47.7); MEAN CORPUSCULAR HEMOGLOBIN 33.1 pg (31.6-35.5); MEAN CORPUSCULAR HGB CONC 34.3 g/dL (31.6-35.5); MEAN CORPUSCULAR VOLUME 96.4 fL (81.4-99.0); MONOCYTES ABSOLUTE AUTO 0.39 K/uL (0.20-0.90); MONOCYTES PERCENT AUTO 5.5 % (3.3-12.6); NEUTROPHILS ABSOLUTE AUTO 6.15 K/uL (1.0-7.6); PLATELET COUNT,PLT 262 K/uL (130-375); WHITE BLOOD CELL COUNT,WBC 7.1 K/uL (3.2-11.0)
[2023-02-24] MEDS ORDERED: traMADol 50 MG Tab PO ONE (21:14)
[2023-02-24 21:15] LABS: APPEARANCE,URINE SLIGHTLY CLOUDY (CLEAR); BILIRUBIN,URINE SMALL (NEGATIVE); COLOR,URINE YELLOW (YELLOW); GLUCOSE,URINE NEGATIVE (NEGATIVE); KETONES,URINE 40 mg/dL (NEGATIVE); LEUKOCYTE ESTERASE,URINE TRACE (NEGATIVE); NITRITE,URINE NEGATIVE (NEGATIVE); OCCULT BLOOD,URINE TRACE-INTACT (NEGATIVE); PH,URINE 5.5 (5.0-8.0); PROTEIN,URINE 100 mg/dL (NEGATIVE); UROBILINOGEN,URINE 0.2 EU/dL (0.2-1.0)
[2023-02-24 21:17] LABS: A/G RATIO 1.1 (1.2-2.2); ALANINE AMINOTRANSFERASE,ALT 10 U/L (12-78); ALBUMIN 3.8 g/dL (3.4-5.0); ALKALINE PHOSPHATASE 90 U/L (46-116); ASPARTATE AMNIOTRANSFERASE,AST 17 U/L (15-37); BILIRUBIN TOTAL 0.5 mg/dL (0.2-1.0); BLOOD UREA NITROGEN,BUN 14 mg/dL (7-18); C-REACTIVE PROTEIN 2.68 mg/dL (0.0-0.3); CARBON DIOXIDE,CO2 26 mmol/L (21-32); CHLORIDE,CL 96 mmol/L (100-108); CREATININE 0.9 mg/dL (0.6-1.0); EST CRCL DRUG DOSING (CG) 36.41 mL/min; ESTIMATED GFR 65 mL/min (>60); GLUCOSE RANDOM 109 mg/dL (74-106); POTASSIUM,K 3.2 mmol/L (3.6-5.2); PROTEIN TOTAL,TP 7.2 g/dL (6.4-8.2); SODIUM,NA 140 mmol/L (140-148)
[2023-02-24 21:18] LABS: ANION GAP 21.2 mmol/L (5.0-14.0)
[2023-02-24 21:38] LABS: CORONAVIRUS COVID-19 NAA NEGATIVE (NEGATIVE); INFLUENZA A NAA NEGATIVE (NEGATIVE); INFLUENZA B NAA NEGATIVE (NEGATIVE); RESPIRATORY SYNCYTIAL VIR NAA NEGATIVE (NEGATIVE)
[2023-02-24] MEDS ORDERED: Sodium Chloride 0.9% 10 ML Syringe FLUSH PRN (21:38)
[2023-02-24] MEDS ORDERED: Pantoprazole 40 MG Tab.CR ONE (21:50)
[2023-02-24] MEDS ORDERED: Pantoprazole 40 MG Tab.CR PO SCH (21:54)
[2023-02-24] MEDS ORDERED: Ondansetron 4 MG Tab.DIS PO PRN (23:03)
[2023-02-24] MEDS ORDERED: Ondansetron 4 MG/2 ML SDV IV PRN (23:03)
[2023-02-24] MEDS ORDERED: tiZANidine 2 MG Tab PO PRN (23:03)
[2023-02-24] MEDS ORDERED: Magnesium Sulfate/Water 2 GM in Premix Bag 1 BAG IV ONE (23:39)
[2023-02-24] MEDS ORDERED: Sodium Chloride 0.9% 1,000 ML IV SCH (23:45)
[2023-02-25] MEDS: Potassium Chloride 10 MEQ in Premix Bag 1 BAG IV SCH ×2 (00:01→03:26)
[2023-02-25] MEDS: Melatonin 3 MG Tab PO PRN (00:11)
[2023-02-25] MEDS: Sennosides/Docusate Sodium 50-8.6 MG Tab PO PRN ×2 (00:11→08:15)
[2023-02-25] MEDS: oxyCODONE 5 MG Tab PO PRN ×4 (00:20→18:12)
[2023-02-25] MEDS: Enoxaparin 30 MG/0.3 ML Syringe SUBCUT SCH ×2 (00:22→20:42)
[2023-02-25 05:53] LABS: HEMOGLOBIN 10.6 g/dL (11.2-15.5); MEAN CORPUSCULAR HEMOGLOBIN 32.7 pg (31.6-35.5); MEAN CORPUSCULAR HGB CONC 34.2 g/dL (31.6-35.5); MEAN CORPUSCULAR VOLUME 95.7 fL (81.4-99.0); RED BLOOD CELL COUNT 3.24 M/uL (3.77-5.24); WHITE BLOOD CELL COUNT,WBC 6.3 K/uL (3.2-11.0)
[2023-02-25 06:07] LABS: CALCIUM 8.6 mg/dL (8.5-10.1); CREATININE 0.7 mg/dL (0.6-1.0); EST CRCL DRUG DOSING (CG) 46.81 mL/min; POTASSIUM,K 3.3 mmol/L (3.6-5.2)
[2023-02-25 06:08] LABS: ANION GAP 20.3 mmol/L (5.0-14.0)
[2023-02-25] MEDS: DULoxetine 30 MG Cap PO SCH (08:16)
[2023-02-25] MEDS: Sertraline 25 MG Tab PO SCH (08:16)
[2023-02-25] MEDS: Pantoprazole 40 MG Tab.CR PO SCH (08:16)
[2023-02-25] MEDS ORDERED: Potassium Chloride 20 MEQ Tab.ER PO ONE ×2 (08:16→17:00)
[2023-02-25] MEDS: buPROPion 150 MG Tab.ER PO SCH (08:16)
[2023-02-25] MEDS: Metoprolol Succinate 25 MG Tab.ER PO SCH (08:16)
[2023-02-25] MEDS: Furosemide 20 MG Tab PO SCH (08:16)
[2023-02-25] MEDS: Allopurinol 100 MG Tab PO SCH (08:16)
[2023-02-25] MEDS: Calcium Carbonate/Vitamin D3 1500 MG-400 Units Tab PO SCH ×2 (08:17→20:42)
[2023-02-25] MEDS: Hydrochlorothiazide/Triamterene 25-37.5 Tab PO SCH (08:17)
[2023-02-25] MEDS: Psyllium Husk Powder Sugar Free 5.85 GM Packet PO SCH (08:17)
[2023-02-25] MEDS: Cyanocobalamin (Vitamin B12) 1,000 MCG Tab PO SCH (08:17)
[2023-02-25] MEDS: Cholecalciferol (Vitamin D3) 25 MCG Tab PO SCH (08:18)
[2023-02-25] MEDS: ARIPiprazole 10 MG Tab PO SCH (10:26)
[2023-02-25] MEDS: Acetaminophen 325 MG Tab PO PRN (11:51)
[2023-02-25] MEDS ORDERED: LORazepam 1 MG Tab PO SCH (12:00)
[2023-02-25] MEDS: Folic Acid 1 MG Tab PO SCH (13:23)
[2023-02-25] MEDS: Thiamine 100 MG Tab PO SCH (13:23)
[2023-02-25] MEDS: Gabapentin 300 MG Cap PO SCH (20:42)
[2023-02-25] MEDS: atorvaSTATin 20 MG Tab PO SCH (20:42)
[2023-02-25] MEDS ORDERED: Non-Formulary Medication 1 Each (Simvastatin [Simvastatin] 40 MG Tablet) PO SCH (21:00)
[2023-02-25] MEDS ORDERED: Pantoprazole 40 MG Tab.CR PO SCH (21:00)
[2023-02-25] MEDS ORDERED: Gabapentin 100 MG Cap PO SCH (21:00)
[2023-02-26] MEDS: Magnesium Hydroxide 400 MG/5 ML Susp 30 ML Cup PO PRN (05:38)
[2023-02-26 06:06] LABS: CALCIUM 9.1 mg/dL (8.5-10.1); EST CRCL DRUG DOSING (CG) 32.77 mL/min; MAGNESIUM 1.9 mg/dL (1.8-2.4); POTASSIUM,K 4.1 mmol/L (3.6-5.2)
[2023-02-26 06:08] LABS: ANION GAP 10.1 mmol/L (5.0-14.0)
[2023-02-26] MEDS: Acetaminophen 325 MG Tab PO PRN (07:43)
[2023-02-26] MEDS: Thiamine 100 MG Tab PO SCH (08:43)
[2023-02-26] MEDS: buPROPion 150 MG Tab.ER PO SCH (08:43)
[2023-02-26] MEDS: Hydrochlorothiazide/Triamterene 25-37.5 Tab PO SCH (08:43)
[2023-02-26] MEDS: ARIPiprazole 10 MG Tab PO SCH (08:43)
[2023-02-26] MEDS: Furosemide 20 MG Tab PO SCH (08:43)
[2023-02-26] MEDS: Pantoprazole 40 MG Tab.CR PO SCH (08:43)
[2023-02-26] MEDS: Calcium Carbonate/Vitamin D3 1500 MG-400 Units Tab PO SCH ×2 (08:43→20:42)
[2023-02-26] MEDS: Cyanocobalamin (Vitamin B12) 1,000 MCG Tab PO SCH (08:44)
[2023-02-26] MEDS: Metoprolol Succinate 25 MG Tab.ER PO SCH (08:44)
[2023-02-26] MEDS: DULoxetine 30 MG Cap PO SCH (08:44)
[2023-02-26] MEDS: Allopurinol 100 MG Tab PO SCH (08:45)
[2023-02-26] MEDS: Folic Acid 1 MG Tab PO SCH (08:45)
[2023-02-26] MEDS: Sertraline 25 MG Tab PO SCH (08:45)
[2023-02-26] MEDS: Cholecalciferol (Vitamin D3) 25 MCG Tab PO SCH (08:46)
[2023-02-26] MEDS: Psyllium Husk Powder Sugar Free 5.85 GM Packet PO SCH (08:53)
[2023-02-26] MEDS: Acetaminophen 500 MG Tab PO SCH ×2 (14:27→20:41)
[2023-02-26] MEDS: oxyCODONE 5 MG Tab PO PRN (18:24)
[2023-02-26] MEDS: Melatonin 3 MG Tab PO PRN (20:41)
[2023-02-26] MEDS: Gabapentin 300 MG Cap PO SCH (20:42)
[2023-02-26] MEDS: atorvaSTATin 20 MG Tab PO SCH (20:43)
[2023-02-26] MEDS: Enoxaparin 30 MG/0.3 ML Syringe SUBCUT SCH (20:43)
[2023-02-27] MEDS: Pantoprazole 40 MG Tab.CR PO SCH (06:49)
[2023-02-27] MEDS: oxyCODONE 5 MG Tab PO PRN ×2 (06:55→16:32)
[2023-02-27] MEDS: Magnesium Hydroxide 400 MG/5 ML Susp 30 ML Cup PO PRN (08:18)
[2023-02-27] MEDS: Sennosides/Docusate Sodium 50-8.6 MG Tab PO PRN ×2 (08:18→16:32)
[2023-02-27] MEDS: Allopurinol 100 MG Tab PO SCH (08:19)
[2023-02-27] MEDS: DULoxetine 30 MG Cap PO SCH (08:19)
[2023-02-27] MEDS: Folic Acid 1 MG Tab PO SCH (08:19)
[2023-02-27] MEDS: Sertraline 25 MG Tab PO SCH (08:20)
[2023-02-27] MEDS: Cholecalciferol (Vitamin D3) 25 MCG Tab PO SCH (08:20)
[2023-02-27] MEDS: Acetaminophen 500 MG Tab PO SCH ×3 (08:20→20:22)
[2023-02-27] MEDS: Cyanocobalamin (Vitamin B12) 1,000 MCG Tab PO SCH (08:20)
[2023-02-27] MEDS: Calcium Carbonate/Vitamin D3 1500 MG-400 Units Tab PO SCH ×2 (08:20→20:22)
[2023-02-27] MEDS: Furosemide 20 MG Tab PO SCH (08:20)
[2023-02-27] MEDS: ARIPiprazole 10 MG Tab PO SCH (08:21)
[2023-02-27] MEDS: Thiamine 100 MG Tab PO SCH (08:21)
[2023-02-27] MEDS: Hydrochlorothiazide/Triamterene 25-37.5 Tab PO SCH (08:21)
[2023-02-27] MEDS: buPROPion 150 MG Tab.ER PO SCH (08:21)
[2023-02-27] MEDS: Metoprolol Succinate 25 MG Tab.ER PO SCH (08:22)
[2023-02-27] MEDS: Psyllium Husk Powder Sugar Free 5.85 GM Packet PO SCH (08:22)
[2023-02-27] MEDS ORDERED: Bisacodyl 10 MG Supp RECTAL ONE (19:40)
[2023-02-27] MEDS: Enoxaparin 30 MG/0.3 ML Syringe SUBCUT SCH (20:20)
[2023-02-27] MEDS: atorvaSTATin 20 MG Tab PO SCH (20:20)
[2023-02-27] MEDS: Gabapentin 300 MG Cap PO SCH (20:21)
[2023-02-28 05:43] VITALS: BP 127/56; PULSE 68
[2023-02-28] MEDS: Metoprolol Succinate 25 MG Tab.ER PO SCH (08:42)
[2023-02-28] MEDS: DULoxetine 30 MG Cap PO SCH (08:42)
[2023-02-28] MEDS: buPROPion 150 MG Tab.ER PO SCH (08:43)
[2023-02-28] MEDS: Sertraline 25 MG Tab PO SCH (08:44)
[2023-02-28] MEDS: Pantoprazole 40 MG Tab.CR PO SCH (08:44)
[2023-02-28] MEDS: Allopurinol 100 MG Tab PO SCH (08:44)
[2023-02-28] MEDS: Furosemide 20 MG Tab PO SCH (08:44)
[2023-02-28] MEDS: ARIPiprazole 10 MG Tab PO SCH (08:44)
[2023-02-28] MEDS: Hydrochlorothiazide/Triamterene 25-37.5 Tab PO SCH (08:44)
[2023-02-28] MEDS: Acetaminophen 500 MG Tab PO SCH (08:45)
[2023-02-28] MEDS: Folic Acid 1 MG Tab PO SCH (08:45)
[2023-02-28] MEDS: Cyanocobalamin (Vitamin B12) 1,000 MCG Tab PO SCH (08:45)
[2023-02-28] MEDS: Thiamine 100 MG Tab PO SCH (08:45)
[2023-02-28] MEDS: Calcium Carbonate/Vitamin D3 1500 MG-400 Units Tab PO SCH (08:46)
[2023-02-28] MEDS: Psyllium Husk Powder Sugar Free 5.85 GM Packet PO SCH (08:46)
[2023-02-28] MEDS: Cholecalciferol (Vitamin D3) 25 MCG Tab PO SCH (08:47)
[2023-02-28] MEDS: oxyCODONE 5 MG Tab PO PRN (08:53)
== END 2023-02-28 13:03 | DRG 552 ==
LOC: JP.ED 18:45 → JP.MS 22:35 → OBSVTOIN 02-26 15:15
PROVIDERS: ADMIT Registered Nurse; ATTEND Internal Medicine
DX: S32.110A Nondisplaced Zone I fracture of sacrum, initial encounter for closed fracture (principal); I10 Essential (primary) hypertension; M10.9 Gout, unspecified; E86.0 Dehydration; E87.6 Hypokalemia; W10.8XXA Fall (on) (from) other stairs and steps, initial encounter; E83.42 Hypomagnesemia; F41.1 Generalized anxiety disorder; K21.9 Gastro-esophageal reflux disease without esophagitis; E78.00 Pure hypercholesterolemia, unspecified; J45.909 Unspecified asthma, uncomplicated; G89.29 Other chronic pain; M54.9 Dorsalgia, unspecified; M19.90 Unspecified osteoarthritis, unspecified site; F32.A Depression, unspecified; D64.9 Anemia, unspecified; Z98.49 Cataract extraction status, unspecified eye; Z98.890 Other specified postprocedural states; Y92.89 Other specified places as the place of occurrence of the external cause; Z90.89 Acquired absence of other organs; Z11.52 Encounter for screening for COVID-19; Z79.899 Other long term (current) drug therapy
CPT/HCPCS: 0241U; 36415; 70450; 70450-26; 72192; 76377; 80048; 80053; 81001; 83735; 85025; 85027; 86140; 96361; 96365; 96366; 96367; 96372; 97110-GP; 97116-GP; 97162-GP; 97165-GO; 99222; 99232; 99239; 99285; A9270-GY; G0378; J1650; J3475; J3480; J3490; J7030; Q0162

== ENCOUNTER 2023-06-05 12:33 | Emergency (ER) | payer MEDICARE ==
[2023-06-05 13:17] LABS: EOSINOPHILS PERCENT AUTO 0.1 % (0.0-5.4); HEMATOCRIT 32.1 % (34.3-46.0); HEMOGLOBIN 11.1 g/dL (11.2-15.5); IMMATURE GRAN PERCENT AUTO 0.3 % (0.0-0.7); LYMPHOCYTES ABSOLUTE AUTO 0.58 K/uL (0.8-3.3); LYMPHOCYTES PERCENT AUTO 8.5 % (11.4-47.7); MEAN CORPUSCULAR HEMOGLOBIN 32.6 pg (31.6-35.5); MEAN CORPUSCULAR HGB CONC 34.6 g/dL (31.6-35.5); MEAN CORPUSCULAR VOLUME 94.1 fL (81.4-99.0); MONOCYTES ABSOLUTE AUTO 0.24 K/uL (0.20-0.90); MONOCYTES PERCENT AUTO 3.5 % (3.3-12.6); NEUTROPHILS ABSOLUTE AUTO 5.94 K/uL (1.0-7.6); NEUTROPHILS PERCENT AUTO 87.6 % (40.0-78.1); PLATELET COUNT,PLT 295 K/uL (130-375); RED BLOOD CELL COUNT 3.41 M/uL (3.77-5.24); WHITE BLOOD CELL COUNT,WBC 6.8 K/uL (3.2-11.0)
[2023-06-05 13:19] LABS: EOSINOPHILS ABSOLUTE AUTO 0.01 K/uL (0.00-0.40); IMMATURE GRAN ABSOLUTE AUTO 0.02 K/uL (0.00-0.23)
[2023-06-05 13:39] LABS: A/G RATIO 1.1 (1.2-2.2); ALANINE AMINOTRANSFERASE,ALT 35 U/L (12-78); ALBUMIN 3.7 g/dL (3.4-5.0); ALKALINE PHOSPHATASE 83 U/L (46-116); ANION GAP 16.2 mmol/L (5.0-14.0); ASPARTATE AMNIOTRANSFERASE,AST 35 U/L (15-37); BILIRUBIN TOTAL 0.6 mg/dL (0.2-1.0); BLOOD UREA NITROGEN,BUN 16 mg/dL (7-18); CALCIUM 9.2 mg/dL (8.5-10.1); CARBON DIOXIDE,CO2 25 mmol/L (21-32); CHLORIDE,CL 98 mmol/L (100-108); CREATININE 0.7 mg/dL (0.6-1.0); EST CRCL DRUG DOSING (CG) 56.27 mL/min; ESTIMATED GFR 88 mL/min (>60); GLUCOSE RANDOM 147 mg/dL (74-106); POTASSIUM,K 3.2 mmol/L (3.6-5.2); PROTEIN TOTAL,TP 7.2 g/dL (6.4-8.2); SODIUM,NA 136 mmol/L (140-148)
[2023-06-05 13:40] LABS: TROPONIN I HIGH SENSITIVITY 3088.6 pg/mL (<=60.3)
[2023-06-05] MEDS: Aspirin 81 MG Tab.Chew PO ONE (13:52)
[2023-06-05] MEDS: Heparin Sodium 5,000 Units/ML Vial IVPUSH ONE (14:14)
[2023-06-05] MEDS: Heparin Sodium/D5W 25,000 UNITS/500 ML BAG IV SCH (14:14)
[2023-06-05 14:16] LABS: APPEARANCE,URINE CLEAR (CLEAR); BILIRUBIN,URINE SMALL (NEGATIVE); COLOR,URINE YELLOW (YELLOW); GLUCOSE,URINE NEGATIVE (NEGATIVE); KETONES,URINE 80 mg/dL (NEGATIVE); LEUKOCYTE ESTERASE,URINE NEGATIVE (NEGATIVE); NITRITE,URINE NEGATIVE (NEGATIVE); OCCULT BLOOD,URINE TRACE-INTACT (NEGATIVE); PROTEIN,URINE 30 mg/dL (NEGATIVE); UROBILINOGEN,URINE 0.2 EU/dL (0.2-1.0)
[2023-06-05 14:22] LABS: WBC,URINE 0-5 (0-5)
[2023-06-05 14:23] LABS: AMORPHOUS SEDIMENT,URINE NOT SEEN; BACTERIA,URINE RARE; EPITHELIAL CELLS,URINE RARE; MUCUS,URINE NOT SEEN
[2023-06-05 14:33] VITALS: BP 145/91; PULSE 103
== END 2023-06-05 15:28 | disposition other institution (70) ==
LOC: JP.ED 12:33
DX: I21.3 ST elevation (STEMI) myocardial infarction of unspecified site (principal); R11.2 Nausea with vomiting, unspecified; I10 Essential (primary) hypertension; E78.00 Pure hypercholesterolemia, unspecified; J45.909 Unspecified asthma, uncomplicated; K21.9 Gastro-esophageal reflux disease without esophagitis; Z79.899 Other long term (current) drug therapy; Z88.5 Allergy status to narcotic agent
CPT/HCPCS: 36415; 70450; 80053; 81001; 83690; 84484; 85025; 93005; 96365; 99285; A9270; J1644

== ENCOUNTER 2023-07-12 12:29 | Emergency (ER) | payer MEDICARE ==
[2023-07-12] MEDS: Sodium Chloride 0.9% 1,000 ML IV SCH (13:16)
[2023-07-12 13:18] LABS: HEMOGLOBIN 12.5 g/dL (11.2-15.5); IMMATURE GRAN PERCENT AUTO 0.3 % (0.0-0.7); LYMPHOCYTES ABSOLUTE AUTO 0.56 K/uL (0.8-3.3); MEAN CORPUSCULAR HEMOGLOBIN 32.6 pg (31.6-35.5); MEAN CORPUSCULAR HGB CONC 34.7 g/dL (31.6-35.5); MONOCYTES ABSOLUTE AUTO 0.31 K/uL (0.20-0.90); NEUTROPHILS ABSOLUTE AUTO 5.31 K/uL (1.0-7.6); NEUTROPHILS PERCENT AUTO 85.7 % (40.0-78.1); PLATELET COUNT,PLT 321 K/uL (130-375); RED BLOOD CELL COUNT 3.83 M/uL (3.77-5.24); WHITE BLOOD CELL COUNT,WBC 6.2 K/uL (3.2-11.0)
[2023-07-12 13:19] LABS: IMMATURE GRAN ABSOLUTE AUTO 0.02 K/uL (0.00-0.23)
[2023-07-12 13:42] LABS: LACTIC ACID 1.3 mmol/L (0.4-2.0)
[2023-07-12 13:44] LABS: A/G RATIO 1.2 (1.2-2.2); ALANINE AMINOTRANSFERASE,ALT 20 U/L (12-78); ALBUMIN 4.2 g/dL (3.4-5.0); ALKALINE PHOSPHATASE 95 U/L (46-116); AMYLASE 41 U/L (25-115); ASPARTATE AMNIOTRANSFERASE,AST 18 U/L (15-37); BILIRUBIN TOTAL 0.7 mg/dL (0.2-1.0); BLOOD UREA NITROGEN,BUN 14 mg/dL (7-18); CALCIUM 9.9 mg/dL (8.5-10.1); CARBON DIOXIDE,CO2 25 mmol/L (21-32); CHLORIDE,CL 94 mmol/L (100-108); CREATININE 0.6 mg/dL (0.6-1.0); ESTIMATED GFR 91 mL/min (>60); GLUCOSE RANDOM 148 mg/dL (74-106); POTASSIUM,K 3.2 mmol/L (3.6-5.2); PROTEIN TOTAL,TP 7.7 g/dL (6.4-8.2); SODIUM,NA 134 mmol/L (140-148)
[2023-07-12 13:45] LABS: ANION GAP 18.2 mmol/L (5.0-14.0)
[2023-07-12] MEDS: Sodium Chloride 0.9% 10 ML Syringe FLUSH ONE (14:17)
[2023-07-12] MEDS: Iopamidol 612 MG/ML 100 ML Bottle IV SCH (14:36)
[2023-07-12] MEDS: Sodium Chloride 0.9% 80 ML IV SCH (14:36)
[2023-07-12 15:55] LABS: BILIRUBIN,URINE NEGATIVE (NEGATIVE); COLOR,URINE YELLOW (YELLOW); GLUCOSE,URINE NEGATIVE (NEGATIVE); KETONES,URINE 80 mg/dL (NEGATIVE); LEUKOCYTE ESTERASE,URINE NEGATIVE (NEGATIVE); NITRITE,URINE NEGATIVE (NEGATIVE); OCCULT BLOOD,URINE TRACE-INTACT (NEGATIVE); PROTEIN,URINE 100 mg/dL (NEGATIVE); UROBILINOGEN,URINE 0.2 EU/dL (0.2-1.0)
[2023-07-12 16:02] LABS: AMORPHOUS SEDIMENT,URINE NOT SEEN; APPEARANCE,URINE SLIGHTLY CLOUDY (CLEAR); BACTERIA,URINE FEW; EPITHELIAL CELLS,URINE FEW; MUCUS,URINE NOT SEEN; WBC,URINE 0-5 (0-5)
[2023-07-12] MEDS: Potassium Chloride 20 MEQ Tab.ER PO ONE (16:44)
[2023-07-12] MEDS ORDERED: Lisinopril 5 MG Tab PO SCH (21:30)
[2023-07-12] MEDS: Lisinopril 5 MG Tab PO SCH (21:35)
[2023-07-12] MEDS: Gabapentin 300 MG Cap PO SCH (21:35)
[2023-07-12] MEDS: Sodium Chloride 0.9% 1,000 ML IV ONE (21:41)
[2023-07-12 22:19] LABS: CORONAVIRUS COVID-19 NAA NEGATIVE (NEGATIVE); INFLUENZA A NAA NEGATIVE (NEGATIVE); INFLUENZA B NAA NEGATIVE (NEGATIVE); RESPIRATORY SYNCYTIAL VIR NAA NEGATIVE (NEGATIVE)
[2023-07-13 08:20] VITALS: PULSE 67
[2023-07-13 09:33] VITALS: BP 165/78
[2023-07-13] MEDS: Sodium Chloride 0.9% 1,000 ML IV SCH (09:33)
[2023-07-13 15:20] LABS: APPEARANCE,URINE CLEAR (CLEAR); BILIRUBIN,URINE NEGATIVE (NEGATIVE); COLOR,URINE YELLOW (YELLOW); GLUCOSE,URINE NEGATIVE (NEGATIVE); KETONES,URINE 15 mg/dL (NEGATIVE); LEUKOCYTE ESTERASE,URINE NEGATIVE (NEGATIVE); NITRITE,URINE NEGATIVE (NEGATIVE); OCCULT BLOOD,URINE NEGATIVE (NEGATIVE); PROTEIN,URINE 30 mg/dL (NEGATIVE); UROBILINOGEN,URINE 0.2 EU/dL (0.2-1.0)
[2023-07-13 15:30] LABS: EPITHELIAL CELLS,URINE FEW; RBC,URINE 0-5 (0-5); WBC,URINE 0-5 (0-5)
[2023-07-13 15:31] LABS: AMORPHOUS SEDIMENT,URINE NOT SEEN; BACTERIA,URINE RARE; MUCUS,URINE FEW
[2023-07-13] MEDS ORDERED: Gabapentin 300 MG Cap PO SCH (21:00)
== END 2023-07-13 16:41 ==
LOC: JP.ED 12:29
DX: G30.9 Alzheimer's disease, unspecified (principal); F02.B0 Dementia in other diseases classified elsewhere, moderate, without behavioral disturbance, psychotic disturbance, mood disturbance, and anxiety; I10 Essential (primary) hypertension; J45.909 Unspecified asthma, uncomplicated; K21.9 Gastro-esophageal reflux disease without esophagitis; M81.0 Age-related osteoporosis without current pathological fracture; Z88.5 Allergy status to narcotic agent; Z79.51 Long term (current) use of inhaled steroids; Z79.82 Long term (current) use of aspirin; Z86.19 Personal history of other infectious and parasitic diseases; Z79.899 Other long term (current) drug therapy
CPT/HCPCS: 0241U; 36415; 70450; 74177; 80053; 81001; 82150; 83605; 83690; 84484; 85025; 86140; 93005; 96360; 96361; 99285; A9270; J3490; J7030; Q9967

== ENCOUNTER 2023-11-10 17:19 | Emergency (ER) | payer MEDICARE ==
[2023-11-10 18:29] LABS: BASOPHILS PERCENT AUTO 0.3 % (0.1-1.3); EOSINOPHILS PERCENT AUTO 0.3 % (0.0-5.4); HEMATOCRIT 28.8 % (34.3-46.0); HEMOGLOBIN 9.6 g/dL (11.2-15.5); IMMATURE GRAN PERCENT AUTO 0.3 % (0.0-0.7); LYMPHOCYTES ABSOLUTE AUTO 0.76 K/uL (0.8-3.3); MEAN CORPUSCULAR HEMOGLOBIN 32.3 pg (31.6-35.5); MEAN CORPUSCULAR HGB CONC 33.3 g/dL (31.6-35.5); MONOCYTES ABSOLUTE AUTO 0.05 K/uL (0.20-0.90); MONOCYTES PERCENT AUTO 1.5 % (3.3-12.6); NEUTROPHILS ABSOLUTE AUTO 2.46 K/uL (1.0-7.6); NEUTROPHILS PERCENT AUTO 74.6 % (40.0-78.1); PLATELET COUNT,PLT 236 K/uL (130-375); RED BLOOD CELL COUNT 2.97 M/uL (3.77-5.24); WHITE BLOOD CELL COUNT,WBC 3.3 K/uL (3.2-11.0)
[2023-11-10 18:30] LABS: BASOPHILS ABSOLUTE AUTO 0.01 K/uL (0.00-0.10); EOSINOPHILS ABSOLUTE AUTO 0.01 K/uL (0.00-0.40); IMMATURE GRAN ABSOLUTE AUTO 0.01 K/uL (0.00-0.23)
[2023-11-10 18:46] LABS: PROTHROMBIN TIME 10.6 sec (9.2-10.6)
[2023-11-10 18:50] LABS: A/G RATIO 1.5 (1.2-2.2); ALANINE AMINOTRANSFERASE,ALT 15 U/L (12-78); ALBUMIN 3.2 g/dL (3.4-5.0); ALKALINE PHOSPHATASE 51 U/L (46-116); ASPARTATE AMNIOTRANSFERASE,AST 16 U/L (15-37); BILIRUBIN TOTAL 0.5 mg/dL (0.2-1.0); BLOOD UREA NITROGEN,BUN 15 mg/dL (7-18); CALCIUM 8.8 mg/dL (8.5-10.1); CARBON DIOXIDE,CO2 28 mmol/L (21-32); CHLORIDE,CL 107 mmol/L (100-108); CREATININE 1.3 mg/dL (0.6-1.0); ESTIMATED GFR 42 mL/min (>60); GLUCOSE RANDOM 130 mg/dL (74-106); POTASSIUM,K 4.9 mmol/L (3.6-5.2); PROTEIN TOTAL,TP 5.3 g/dL (6.4-8.2); SODIUM,NA 141 mmol/L (140-148)
[2023-11-10] MEDS: Ondansetron 4 MG/2 ML SDV IVPUSH ONE ×2 (18:56→22:47)
[2023-11-10] MEDS: Sodium Chloride 0.9% 10 ML Syringe FLUSH ONE (18:56)
[2023-11-10] MEDS: fentaNYL 50 MCG/ML SDV IVPUSH ONE ×2 (18:56→20:41)
[2023-11-10] MEDS: Pantoprazole 80 MG in Sodium Chloride 0.9% 100 ML IV ONE (18:56)
[2023-11-10] MEDS: Sodium Chloride 0.9% 1,000 ML IV SCH ×2 (18:57→19:25)
[2023-11-10] MEDS ORDERED: Naloxone 0.4 MG/ML SDV IVPUSH PRN ×2 (20:18→22:05)
[2023-11-10] MEDS: Sodium Chloride 0.9% 100 ML IV SCH (21:07)
[2023-11-10] MEDS: Iopamidol 612 MG/ML 100 ML Bottle IV SCH (21:07)
[2023-11-10] MEDS: fentaNYL 100 MCG/2 ML SDV IVPUSH ONE (22:17)
[2023-11-10] MEDS: Cefepime 2 GM in Sodium Chloride 0.9% 50 ML IV ONE (22:23)
[2023-11-10] MEDS: Piperacillin/Tazobactam 4.5 GM in Sodium Chloride 0.9% 100 ML IV ONE (23:06)
[2023-11-10 23:08] VITALS: BP 101/56; PULSE 95
== END 2023-11-10 23:00 ==
LOC: JP.ED 17:19
DX: K63.1 Perforation of intestine (nontraumatic) (principal); K62.5 Hemorrhage of anus and rectum; I10 Essential (primary) hypertension; J45.909 Unspecified asthma, uncomplicated; K21.9 Gastro-esophageal reflux disease without esophagitis; M19.90 Unspecified osteoarthritis, unspecified site; Z86.73 Personal history of transient ischemic attack (TIA), and cerebral infarction without residual deficits; Z79.82 Long term (current) use of aspirin; Z79.899 Other long term (current) drug therapy; Z88.5 Allergy status to narcotic agent
CPT/HCPCS: 36415; 36430; 74177; 80053; 82140; 82272; 83605; 84145; 85025; 85610; 86140; 86850; 86900; 86901; 86920; 86922; 96361; 96365; 96367; 96375; 96376; 99285; J0692; J2405; J2470; J2543; J3010; J3490; J7030; P9016; Q9967